=== PATIENT | female | born 1955 | race Caucasian/White ===

== ENCOUNTER → 2017-03-18 | Outpatient (CLI) | payer OTHER ==
[~2017-03-18] MED LIST: BENTYL 20MG20 MG/TAB PO; CALCIUM CARB W/1 TA1 PO; CLARITIN 1010 MG/TAB PO; FLONASEALLERGY NS; HCTZ 25MG TAB25 MG PO; KLOR-CON M2020 MEQ PO; LEXAPRO 10MG10 MG PO; MULTI VITAMINS1 TAB PO; NORCO 325 MG-51 TAB PO; OMEGA-3 FISH1000 MG PO; SYNTHROID0.1 MG/TAB PO; VANCOCIN H125 MG/CAP PO; WELLBUTRIN XL150 MG PO
== END ==
LOC: COL.RAD 09:27
DX: S83.241A Other tear of medial meniscus, current injury, right knee, initial encounter (principal); M25.461 Effusion, right knee